=== PATIENT | female | born 1955 | race Two or more races ===

== ENCOUNTER 2019-01-28 07:37 | Outpatient (CLI) | payer OTHER | END 2019-01-28 07:40 | disposition home or self-care (01) | LOC: SONOGRAMA 07:37 | DX: E07.89 Other specified disorders of thyroid (principal) ==

== ENCOUNTER 2020-10-08 13:11 | Outpatient (CLI) | payer OTHER | END 2020-10-08 13:15 | disposition home or self-care (01) | LOC: NUCLEAR 13:11 | PROVIDERS: ATTEND Internal Medicine Sports Medicine | DX: C73 Malignant neoplasm of thyroid gland (principal); E89.0 Postprocedural hypothyroidism | CPT/HCPCS: 79005; A9517 ==

== ENCOUNTER 2020-10-12 12:28 | Outpatient (CLI) | payer OTHER | END 2020-10-12 12:32 | disposition home or self-care (01) | LOC: NUCLEAR 12:28 | PROVIDERS: ATTEND Internal Medicine Sports Medicine | DX: C73 Malignant neoplasm of thyroid gland (principal); E89.0 Postprocedural hypothyroidism | CPT/HCPCS: 78013; A9512 ==

== ENCOUNTER 2022-02-25 10:45 | Outpatient (CLI) | payer OTHER | END 2022-02-25 10:47 | disposition home or self-care (01) | LOC: NUCLEAR 10:45 | PROVIDERS: ATTEND Internal Medicine Sports Medicine | DX: C73 Malignant neoplasm of thyroid gland (principal) ==